=== PATIENT | female | born 1975 | race African-American/Black ===

== ENCOUNTER 2022-03-09 10:57 | Emergency (ER) | payer OTHER ==
[2022-03-09 11:24] VITALS: TEMP 98.5; BMI 25.9
[2022-03-09] MEDS ORDERED: KETOROLAC TROMETHAMINE 30 MG/1 ML VIAL IM ONE (13:02)
[2022-03-09] MEDS ORDERED: KETOROLAC TROMETHAMINE 30 MG/1 ML VIAL ONE (14:18)
[2022-03-09 14:50] VITALS: BP 126/85; PULSE 73
== END 2022-03-09 14:49 | disposition home or self-care (01) ==
LOC: JER 10:57
PROC: 3E023GC Introduction of Other Therapeutic Substance into Muscle, Percutaneous Approach (ICD-10-PCS; principal; 2022-03-09)
DX: M21.371 Foot drop, right foot (principal); Z96.641 Presence of right artificial hip joint
CPT/HCPCS: 93971-TC; 99284-25